=== PATIENT | female | born 1945 | race Caucasian/White ===

== ENCOUNTER → 2022-11-16 14:17 | Outpatient (BNVA) | payer MEDICARE, SELFPAY | PROVIDERS: PCP Neuromusculoskeletal Medicine & OMM; Referring Provider Neuromusculoskeletal Medicine & OMM; Visit Provider Psychiatry & Neurology Neurology | DX: R26.9 Unspecified abnormalities of gait and mobility (principal) | CPT/HCPCS: 99204 ==

== ENCOUNTER → 2023-02-21 14:54 | Outpatient (BNVA) | payer MEDICARE, SELFPAY | PROVIDERS: PCP Neuromusculoskeletal Medicine & OMM; Referring Provider Neuromusculoskeletal Medicine & OMM; Visit Provider Psychiatry & Neurology Neurology | DX: R26.89 Other abnormalities of gait and mobility (principal); I10 Essential (primary) hypertension | CPT/HCPCS: 99214 ==

== ENCOUNTER 2025-01-12 19:49 | Observation (INO) | payer MEDICARE, SELFPAY ==
[2025-01-12] VITALS (36 sets, daily range): BP systolic 126–171; BP diastolic 50–107; PULSE 36–99; RESP 12–35; TEMP 36.5; O2SAT 93–99
--- NOTE | 2025-01-12 19:45 | RT.EKG_ITS ---
APPROVED REPORT Exam: Resting ECG Reason for Exam: afib Patient Location: E HR:77 bpm ECG Measurements Heart Rate 77 AXIS IN 152 P 59 QRSd 85 QRS 57 QT 402 T 67 QTc 456 Conclusion Sinus rhythm, rate 77 No interval abnormalities No STEMI Movement artifact No priors available for comparison
--- NOTE | 2025-01-12 20:15 | DI.RAD_ITS ---
Exam(s) XR CHEST 2V PA LATERAL EXAM: XR CHEST 2V PA LATERAL CLINICAL HISTORY: Chest pain TECHNIQUE: 2D digital imaging was performed of the chest. Images were obtained. PA and lateral v iews were obtained. COMPARISON: No exams were available for comparison FINDINGS: MEDIASTINUM: Normal. HEART: Normal. PULMONARY VASCULATURE: Normal. LUNGS: Clear. PLEURAL SPACE: No pleural effusion or pneumothorax. BONE:Within normal limits for the patient's age. There is an old compression fracture deformity of T 12. OTHER FINDINGS:Normal. IMPRESSION: 1. No acute pulmonary findings. 2. The preliminary [facility] report was reviewed. DATA REPOSITORY: RADIATION DOSE DELIVERED:
[2025-01-12 20:27] LABS: Abs Immature Grans 0.02 10^3/uL (0.0-0.06); Absolute Basophil Count 0.09 10^3/uL (0.0-0.2); Absolute Eosinophil Count 0.15 10^3/uL (0.0-0.7); Absolute Lymphocyte Count 2.33 10^3/uL (1.2-3.4); Absolute Monocyte Count 0.36 10^3/uL (0.1-0.8); Absolute Neutrophil Count 4.84 10^3/uL (1.2-6.7); Basophils % 1.2 %; Eosinophils % 1.9 %; HCT 42.2 % (36.0-46.0); HGB 13.4 g/dL (11.2-15.7); Immature Grans % 0.3 %; Lymphocytes % 29.9 %; MCH 28.2 pg (27.0-33.0); MCHC 31.8 % (32.0-36.0); MCV 89 fL (80-95); MPV 9.2 fL (8.0-11.0); Monocytes % 4.6 %; Neutrophils % 62.1 %; Platelet Count 337 10^3/uL (130-400); RBC 4.76 10^6/uL (3.93-5.22); RDW-SD 49.1 fL; WBC 7.79 10^3/uL (4.4-10.8)
[2025-01-12] MEDS: Aspirin 81 MG CHEW 324 MG CH (20:29)
[2025-01-12 20:52] LABS: ALT 16 U/L (14-59); AST 14 U/L (15-37); Albumin 3.9 g/dL (3.4-5.0); Alkaline Phosphatase 95 U/L (46-116); Anion Gap 8.7 mmol/L (3-11); BUN 15 mg/dL (7-18); Bilirubin, Total 0.3 mg/dL (0.2-1.0); CO2 28.3 mmol/L (21.0-32.0); CREATININE 1.3 mg/dL (0.55-1.02); Calcium 9.4 mg/dL (8.5-10.1); Chloride 101 mmol/L (98-107); Estimated GFR 41.57 (mL/min/1.73m2); Glucose 99 mg/dL (74-106); NT-proBNP 92 pg/mL (<300); Potassium 3.5 mmol/L (3.5-5.1); Sodium 138 mmol/L (136-145); Total Protein 8.3 g/dL (6.4-8.2); Troponin I 6 ng/L (<or=51)
--- NOTE | 2025-01-12 21:17 | ED.GENADUL_ITS ---
Discharge Plan Disposition Patient Disposition: Admit to [facility] Condition: Stable Discharge Details Chief Complaint: Chest Pain Clinical Impression: Chest pain with high risk for cardiac etiology, Gait abnormality Primary Care Provider: Irving Molina ED Provider: Soledad Weiss Home Meds and New Rx's Prescriptions: No Action pravastatin 40 mg tablet 40 mg PO DAILY clopidogrel 75 mg tablet 75 mg PO DAILY Eliquis 5 mg tablet 5 mg PO BID levothyroxine 112 mcg capsule 112 mcg PO DAILY lisinopril 20 mg tablet 20 mg PO DAILY metoprolol succinate 100 mg tablet extended release 24 hr 150 mg PO DAILY HPI General Mode of arrival: ambulatory . Date/Time Provider Initiated Documentation: 01/12/25 20:03 . Limitations to Documentation: no limitations . Information obtained by: patient, family and old records reviewed . HPI Narrative: This is an 79-year-old female patient with a past medical history significant for paroxysmal atrial fibrillation on Eliquis, history of hypothyroidism, stroke, hyperlipidemia, and hypertension, who is presenting for evaluation of chest discomfort. The patient reports that she was working around her home today, and frequently had to stop because she had a discomfort or pressure in her chest. She reports that she was not having pain, states that she did not have shortness of breath, but felt like her heart was fluttering and pounding out of her chest. The patient reports that she was recently told by her outpatient provider to increase one of her medications to 1-1/2 pills, she cannot remember what medication that was, and her son thinks that she might have run out of it. The patient does not recall which medication she may have ran out of. She reports on arrival to the emergency department that her symptoms of chest pressure and fluttering in her chest have resolved, though she does feel shaky. She reports that prior to today she was feeling quite well, denies nausea or vomiting, changes in oral intake. Related Data Home Medications ?Medication ?Instructions ?Recorded ?Confirmed apixaban 5 mg tablet (Eliquis) 5 mg PO BID 02/02/23 01/12/25 levothyroxine 112 mcg capsule 112 mcg PO DAILY 02/02/23 01/12/25 lisinopril 20 mg tablet 20 mg PO DAILY 02/02/23 01/12/25 metoprolol succinate 100 mg 150 mg PO DAILY 02/02/23 01/12/25 tablet,extended release 24 hr pravastatin 40 mg tablet 40 mg PO DAILY 02/21/23 01/12/25 clopidogrel 75 mg tablet 75 mg PO DAILY 03/22/23 01/12/25 Allergies Allergy/AdvReac Type Severity Reaction Status Date / Time No Known Allergies Allergy Verified 01/12/25 20:34 General Stated Complaint: Chest Pain SUSAN: 3 Exam Narrative Exam Narrative: Gen: awake and alert, appears uncomfortable HEENT: PERRL, EOMs full and without nystagmus. External ears and nose normal, mucous membranes moist. Neck: Supple, full range of motion, no observable masses Lungs: No increased work of breathing, lung sounds clear and equal bilaterally without wheezes, rhonchi, or rales. CV: Heart with regular rate and rhythm, no murmurs auscultated. Strong and symmetrical radial pulses. Occasional unifocal PVCs appreciated on telemetry Abdomen: Soft, nondistended, non-tender to palpation. No rigidity, rebound tenderness, or guarding. MSK: No joint swelling, no redness. Full ROM without limitation, no external traumatic findings. No peripheral edema Skin: The patient has small nonblanching petechial like dots on her anterior chest, which her family member thinks have been there for some time. Otherwise, normal color, warm, and dry. Neuro: Cranial nerves II-XII intact and symmetrical bilaterally. 5/5 strength in all muscle groups x4 extremities. No sensory deficits. Psych: Appropriate for situation. Course Vital Signs Vital signs: Vital Signs Temperature 36.5 C 01/12/25 20:15 Pulse 75 01/12/25 20:15 Respiratory Rate 01/12/25 20:15 Blood Pressure 166/70 H 01/12/25 20:15 Pulse Oximetry 98 01/12/25 20:15 Temperature 36.5 C 01/12/25 20:15 Temperature Source Oral 01/12/25 20:15 Pulse 75 01/12/25 20:15 Respiratory Rate 01/12/25 20:15 Respiratory Effort Normal 01/12/25 20:24 Blood Pressure 166/70 H 01/12/25 20:15 Blood Pressure Position Supine 01/12/25 20:15 Pulse Oximetry 98 01/12/25 20:15 Oxygen Delivery Method Room Air 01/12/25 20:15 Oxygen Flow Rate 0 01/12/25 20:15 Lab/Test Results Lab/Test Results: Laboratory Tests Range/Units 01/12/25 20:11 WBC (4.4-10.8) 10^3/uL 7.79 RBC (3.93-5.22) 10^6/uL 4.76 Hgb (11.2-15.7) g/dL 13.4 Hct (36.0-46.0) % 42.2 MCV (80-95) fL 89 MCH (27.0-33.0) pg 28.2 MCHC (32.0-36.0) % 31.8 L RDW (11.7-14.6) % 15.0 H Plt Count (130-400) 10^3/uL 337 MPV (8.0-11.0) fL 9.2 Immature Gran % % 0.3 Neutrophils % % 62.1 Lymphocytes % % 29.9 Monocytes % % 4.6 Eosinophils % % 1.9 Basophils % % 1.2 Nucleated RBC % (0.0-0.3) % 0.0 Absolute Neutrophils (1.2-6.7) 10^3/uL 4.84 Absolute Lymphocytes (1.2-3.4) 10^3/uL 2.33 Absolute Monocytes (0.1-0.8) 10^3/uL 0.36 Absolute Eosinophils (0.0-0.7) 10^3/uL 0.15 Absolute Basophils (0.0-0.2) 10^3/uL 0.09 Sodium (136-145) mmol/L 138 Potassium (3.5-5.1) mmol/L 3.5 Chloride (98-107) mmol/L 101 Carbon Dioxide (21.0-32.0) mmol/L 28.3 Anion Gap (3-11) mmol/L 8.7 BUN (7-18) mg/dL 15 Creatinine (0.55-1.02) mg/dL 1.3 H Est GFR (CKD-EPI 2020) (mL/min/1.73m2) 41.57 Glucose (74-106) mg/dL 99 Calcium (8.5-10.1) mg/dL 9.4 Magnesium (1.8-2.4) mg/dL 2.0 Total Bilirubin (0.2-1.0) mg/dL 0.3 AST (15-37) U/L 14 L ALT (14-59) U/L 16 Alkaline Phosphatase (46-116) U/L 95 Troponin I (<or=51) ng/L 6 NT-Pro-B Natriuret Pep (<300) pg/mL 92 Total Protein (6.4-8.2) g/dL 8.3 H Albumin (3.4-5.0) g/dL 3.9 Medical Decision Making This is an 79-year-old female patient presenting for evaluation of chest discomfort and palpitations. My differential includes but is not limited to ACS including STEMI, NSTEMI, unstable angina, certainly considered arrhythmia, pericarditis/myocarditis, aortic pathology. Considered pulmonary abnormalities including pneumonia, bronchitis, pleural effusion, pulmonary edema, reactive airway disease, pneumothorax. The patient is without tachycardia, hypoxia, and is therapeutically anticoagulated, decreasing my concern for pulmonary embolism. No GI symptoms or vomiting to suggest Boerhaave's, esophagitis, peptic ulcer disease, pancreatitis. Considered musculoskeletal pathologies including costochondritis, chest wall pain. At this time the patient's symptoms are improved/resolved, an EKG was obtained that shows a normal sinus rhythm without evidence of ischemia, interval abnormality, though she does have occasional PVCs. She is otherwise hemodyn amically appropriate. We will obtain laboratory studies to include CBC, CMP, magnesium, troponin, BNP, and a chest x-ray. I ordered the patient 324 mg of aspirin. - I independently interpreted the laboratory studies, which show no significant leukocytosis, anemia, or thrombocytopenia. The chemistry panel is without evidence of electrolyte abnormality, new or worsening kidney dysfunction, or kiah er injury. The troponin was 6 and 6 again on the 1 hour recheck without interval change. BNP is low. The patient was road tested with a walker which is her baseline level of mobility due to her poor balance. With ambulation down the hallway she developed some shortness of breath, and her balance issues were ongoing, though not worse for her than typical per patient report. However, when she was sitting down her PVC burden was noted to be, and given her report of fatigue, shortness of breath I am concerned that this patient, who is heart score is elevated at 5, would benefit from inpatient observation and stress testing when available. The patient was amenable to staying after shared decision-making conversation, and I discussed this patient's case with the hospitalist, who is graciously accepted her for admission to their service. The patient remained hemodynamically appropriate while under my care and was transferred from our department without incident. Soledad Weiss MD Medical Records Medical records reviewed: Yes I reviewed the patient's medical records. Lab Data Lab results reviewed: Yes I reviewed the patient's lab results. Quality:SDOH Health Related Social Needs: No Data to Display PFSH All Active Problems (Updated 01/12/25 @ 22:51 by Soledad Weiss MD) Chest pain with high risk for cardiac etiology (Acute) Bilateral sensorineural hearing loss (Acute) Gait abnormality (Acute) Medical History Atrial fibrillation Balance problem Depression Dizziness Fibromyalgia Hyperlipidemia Hypertension Hypothyroidism Irregular heartbeat Paroxysmal atrial fibrillation Stroke Surgical History S/P lumbar discectomy Social History Smoking/Tobacco Use Status: Never Smoking risk assessment performed?: Yes Alcohol Intake: never Drug use: Never Household members: spouse Number of Children: 6
[2025-01-12 21:37] LABS: Troponin I 6 ng/L (<or=51)
--- NOTE | 2025-01-12 22:35 | DI.[facility]_ITS ---
PROCEDURE INFORMATION: Exam: XR Chest Exam date and time: 01/12/2025 8:52 PM Age: 79 years old Clinical indication: Other: Chest pain TECHNIQUE: Imaging protocol: Radiologic exam of the chest. Views: 2 views. COMPARISON: No relevant prior studies available. FINDINGS: Lungs: Unremarkable. No consolidation. Pleural spaces: Unremarkable. No pleural effusion. No pneumothorax. Heart/Mediastinum: Unremarkable. No cardiomegaly. Bones/joints: Unremarkable. IMPRESSION: No acute findings. Dictated and Authenticated by: Juan Antonio Mackey MD. Orderin St. Harjit Rowe MD
--- NOTE | 2025-01-12 23:35 | W.PM.HP.N ---
Date of service: 01/12/25 Time of Service: 23:35 Assessment and Plan Assessment and plan (1) Chest pain with high risk for cardiac etiology: Start date: 01/12/25 Status: Acute Assessment and plan: This is an 79-year-old lady with progressive exertional symptoms which are consistent with exertional angina and patient being asymptomatic at rest. She does have significant cardiovascular risk with paroxysmal atrial fibrillation and previous stroke. She is on appropriate medical regimen and will be admitted for observation on telemetry and trending troponins. She does have frequent PVCs with exertion as well. She will be scheduled to see cardiology with a stress test in the morning and consider updated echocardiogram. Cardiology will be consulted. Patient was given 1 dose of aspirin full dose but this would not be continuous cardiology thinks that this is necessary with patient already on Plavix. She is on a statin moderate dose therapy. This will be continued. She is a full code. (2) Paroxysmal atrial fibrillation: Assessment and plan: Continue outpatient medical regimen with apixaban and beta-marge. Cardiac monitoring. (3) Hypothyroidism: Assessment and plan: Continue outpatient supplement with TSH normal. (4) Hypertension: Assessment and plan: Continue outpatient medical regimen monitoring and adjusting as needed. (5) Hyperlipidemia: Assessment and plan: Continue outpatient statin therapy. History of Present Illness History of Present Illness Chief Complaint: Progressive exertional chest pressure with dyspnea and fatigue. 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 She has had progressive exertional chest pressure which she describes is not pain and some shortness of breath with palpitations while she has been working. She presents to the ED because of her increasing symptoms with exertion and EKG did not reveal atrial fibrillation or ischemic changes. She had negative troponins. She had a hallway walking test using her walker and did not have chest pain but return of exertional dyspnea with increased PVC frequency. She also felt fatigued after walking. Because of her history of atherosclerotic vessel disease and exertional symptoms, the patient was admitted for observation and trending troponins with cardiac monitoring and planned cardiac stress test with cardiology consultation in the morning. She was amenable to staying. Patient's blood pressure was slightly elevated upon presentation but this normalized with patient to be continued on her usual outpatient medical regimen. She is a full code. Review of Systems Narrative: 13 point review of systems otherwise unrevealing or stable. PFSH All Active Problems (Updated 01/12/25 @ 23:54 by Lobo White) Chest pain with high risk for cardiac etiology (Acute) Bilateral sensorineural hearing loss (Acute) Gait abnormality (Acute) Medical History Dizziness Balance problem Atrial fibrillation Stroke Paroxysmal atrial fibrillation Depression Fibromyalgia Hypothyroidism Hyperlipidemia Hypertension Irregular heartbeat Surgical History S/P lumbar discectomy Social History Smoking/Tobacco Use Status: Never Smoking risk assessment performed?: Yes Alcohol Intake: never Drug use: Never Household members: spouse Housing: house Number of Children: 6 Meds Allergies and Home Medications Allergies Allergy/AdvReac Type Severity Reaction Status Date / Time No Known Allergies Allergy Verified 01/12/25 20:34 Home Medications ?Medication ?Instructions ?Recorded ?Confirmed ?Type apixaban 5 mg tablet (Eliquis) 5 mg PO BID 02/02/23 01/12/25 History levothyroxine 112 mcg capsule 112 mcg PO DAILY 02/02/23 01/12/25 History lisinopril 20 mg tablet 20 mg PO DAILY 02/02/23 01/12/25 History metoprolol succinate 100 mg 150 mg PO DAILY 02/02/23 01/12/25 History tablet,extended release 24 hr pravastatin 40 mg tablet 40 mg PO DAILY 02/21/23 01/12/25 History clopidogrel 75 mg tablet 75 mg PO DAILY 03/22/23 01/12/25 History Exam Narrative Exam Narrative: General: Patient appears appropriate age, moderately obese, alert and oriented x 3 and in no acute distress. She does ambulate with walker. HEENT: Normocephalic, eyes with pupils equal and reactive to light symmetrically, extraocular movement intact and sclera anicteric. Moist oral mucosa with fair dentition. Neck: Supple without JVD. Back: Kyphotic without CVA tenderness. Lungs: Clear to auscultation and percussion with no focalizing rales or rhonchi. Normal vesicular breath sounds. Breast: Exam deferred. Heart: Regular rate and rhythm with no murmur or gallop appreciated. Abdomen: Obese contour, soft and nontender to palpation with no palpable hepatosplenomegaly. Bowel sounds positive all quadrants. Genitalia/rectal: Exam deferred Extremities: Without clubbing, cyanosis or pitting edema with patient having moderate nonpitting edema over ankles and feet. Good capillary refill. Skin: Normal color, warm and dry. Neuro: Cranial nerves II through XII grossly intact, no focalized motor deficits and no tremor. Psych: Normal affect and mood. No abnormal thought processes. Remote and recent memory intact. Results Labs 01/13/25 06:02 01/13/25 06:02 Labs: Laboratory Results - last 24 hr 01/12/25 01/12/25 20:11 21:09 WBC 7.79 RBC 4.76 Hgb 13.4 Hct 42.2 MCV 89 MCH 28.2 MCHC 31.8 L RDW 15.0 H Plt Count 337 MPV 9.2 Immature Gran % 0.3 Neutrophils % 62.1 Lymphocytes % 29.9 Monocytes % 4.6 Eosinophils % 1.9 Basophils % 1.2 Nucleated RBC % 0.0 Absolute Neutrophils 4.84 Absolute Lymphocytes 2.33 Absolute Monocytes 0.36 Absolute Eosinophils 0.15 Absolute Basophils 0.09 Sodium 138 Potassium 3.5 Chloride 101 Carbon Dioxide 28.3 Anion Gap 8.7 BUN 15 Creatinine 1.3 H Est GFR (CKD-EPI 2020) 41.57 Glucose 99 Calcium 9.4 Magnesium 2.0 Total Bilirubin 0.3 AST 14 L ALT 16 Alkaline Phosphatase 95 Troponin I 6 6 NT-Pro-B Natriuret Pep 92 Total Protein 8.3 H Albumin 3.9 Last Vital Signs Temp 36.5 C 01/12/25 20:15 Pulse 74 01/12/25 23:20 Resp 17 01/12/25 23:20 BP 148/50 H 01/12/25 23:16 Pulse Ox 95 01/12/25 23:20 Time Spent Time spent with Patient: >75 minutes Time was spent: preparing to see the patient(eg.review tests), obtaining and/or reviewing separately otained hiistory, ordering medications,tests, procedures, indepentently interpreting results, counseling the patient and care coordination
[2025-01-13] VITALS (22 sets, daily range): BP systolic 110–158; BP diastolic 38–77; PULSE 55–82; RESP 13–21; TEMP 35.3–36.9; O2SAT 93–97
--- NOTE | 2025-01-13 | DI.NM_ITS ---
APPROVED REPORT Exam: Pharmacologic Patient Location: In-Patient Room/Bed: Stress Nurse: Juliette Muñoz RN Ordering Provider:AUSTEN NICOLE, Contact Number: BMI: 33.44 Baseline Rhythm: Sinus Rhythm Indications: Chest tightness/RODRIGUEZ Medical History Medical History: Dizziness, stroke, balance problem, paroxysmal afib, depression, fibromyalgia, hypot hyroidism, HLD, HTN, irregular heartbeat Cardiac Medications: Eliquis, levothyroxine, lisinopril, metoprolol succinate, pravastatin, clopidogr el Allergies: NKA Cardiac Risk Factors: Family hx, HTN, HLD Previous Cardiac Procedures: None Pretest Chest Pain Characteristics: None Exercise History: Sedentary Physical Disabilities: back pain Lung Sounds: Clear to auscultation Heart Sounds: Regular Stress Test Details Test: Pharmacologic stress testing performed using 0.4 mg of regadenoson per 5 mL given IV over 10 s econds. Reason for pharmacologic stress test: physical limitation. Nuclear Acquisition: Rest Tc-99m/Stress Tc-99m 1 day Rest Isotope: Tc-99m Sestamibi. Dose: 10.0 Date: 01/13/2025 Injection Time: 1200 Stress Isotope: Tc-99m Sestamibi. Dose: 30.0 Date: 01/13/2025 Injection Time: 1410 HR Resting HR Supine: 62 bpm Max Heart Rate (APMHR): 140 bpm Target HR (85% APMHR): 119 bpm Max HR Achieved: 74 bpm % of APMHR: 53 Recovery HR: 69 bpm BP Resting BP Supine: 130/90 mmHg Max BP: 150/80 mmHg Recovery BP: 150/80 mmHg ECG Resting ECG: Sinus Rhythm Ectopy: Occasional PVC's Stress ECG: Sinus Rhythm ST Change: Nondiagnostic low heart rate Arrhythmia: Occasional PVC's Recovery ECG: Sinus Rhythm Recovery ST Change: Nondiagnostic low heart rate Clinical Angina Score: None Rate Pressure Product: [id number] Stress ECG Conclusion 1. Resting electrocardiogram was normal 2. Patient underwent testing using pharmacologic stress with regadenoson 3. The electrocardiographic portion of the test was nondiagnostic due to inadequate heart rate 4. See MPI report Stress Test Summary STAGE HR BP SpO2 Symptoms NOTES Supine 62 130/90 98% 1 min post Lexiscan injection 73 150/70 97% 3 min post Lexiscan injection 66 150/80 96% 6 min post Lexiscan injection 70 150/80 96% MPI Conclusion Myocardial perfusion is normal. There is no ischemia or evidence of prior infarction Ejection fraction is 59% with normal wall motion
[2025-01-13 00:34] LABS: Troponin I 5 ng/L (<or=51)
[2025-01-13 00:52] LABS: COVID-19 PCR Negative (Negative); Influenza A PCR Negative (Negative); Influenza B PCR Negative (Negative); RSV PCR Negative (Negative); Source Nasopharynx
--- NOTE | 2025-01-13 01:23 | W.PCEDHO ---
Registration Status: Primary Language: Preferred Language: ED Information & Data Chief Complaint Chest Pain 01/12/25 21:17 Triage Note 1 hour ago pt felt like her 01/12/25 20:15 heart waws racing, and it would stop and become normal and the would start racing racing again, and wouldn't stop Medical / Surgical History (Last Reviewed 01/12/25 @ 23:38 by Lobo White) Dizziness Balance problem Atrial fibrillation Stroke Paroxysmal atrial fibrillation Depression Fibromyalgia Hypothyroidism Hyperlipidemia Hypertension Irregular heartbeat (Last Reviewed 01/12/25 @ 23:38 by Lobo White) S/P lumbar discectomy Most Recent Vital Signs Temperature 36.5 C 01/12/25 20:15 Temperature Source Oral 01/12/25 20:15 Pulse 76 01/13/25 00:20 Pulse 81 01/13/25 00:20 Respiratory Rate 16 01/13/25 00:20 Respiratory Effort Normal 01/12/25 20:24 Blood Pressure 158/46 H 01/13/25 00:16 Blood Pressure Mean 84 01/13/25 00:16 Blood Pressure Position Supine 01/12/25 20:15 Pulse Oximetry 95 01/13/25 00:20 Oxygen Delivery Method Room Air 01/12/25 20:15 Oxygen Flow Rate 0 01/12/25 20:15 Allergies No Known Allergies Allergy (Verified 01/12/25 20:34) IV IV Catheter Type [Right Peripheral IV Antecubital] IV Catheter Gauge [Right 18 Antecubital] Diagnostics 01/13/25 01/12/25 01/12/25 Range/Units 00:05 21:09 20:11 WBC 7.79 (4.4-10.8) 10^3/uL RBC 4.76 (3.93-5.22) 10^6/uL Hgb 13.4 (11.2-15.7) g/dL Hct 42.2 (36.0-46.0) % MCV 89 (80-95) fL MCH 28.2 (27.0-33.0) pg MCHC 31.8 L (32.0-36.0) % RDW 15.0 H (11.7-14.6) % Plt Count 337 (130-400) 10^3/uL MPV 9.2 (8.0-11.0) fL Immature Gran % 0.3 % Neutrophils % 62.1 % Lymphocytes % 29.9 % Monocytes % 4.6 % Eosinophils % 1.9 % Basophils % 1.2 % Nucleated RBC % 0.0 (0.0-0.3) % Absolute Neutrophils 4.84 (1.2-6.7) 10^3/uL Absolute Lymphocytes 2.33 (1.2-3.4) 10^3/uL Absolute Monocytes 0.36 (0.1-0.8) 10^3/uL Absolute Eosinophils 0.15 (0.0-0.7) 10^3/uL Absolute Basophils 0.09 (0.0-0.2) 10^3/uL Sodium 138 (136-145) mmol/L Potassium 3.5 (3.5-5.1) mmol/L Chloride 101 (98-107) mmol/L Carbon Dioxide 28.3 (21.0-32.0) mmol/L Anion Gap 8.7 (3-11) mmol/L BUN 15 (7-18) mg/dL Creatinine 1.3 H (0.55-1.02) mg/dL Est GFR (CKD-EPI 2020) 41.57 (mL/min/1.73m2) Glucose 99 (74-106) mg/dL Calcium 9.4 (8.5-10.1) mg/dL Magnesium 2.0 (1.8-2.4) mg/dL Total Bilirubin 0.3 (0.2-1.0) mg/dL AST 14 L (15-37) U/L ALT 16 (14-59) U/L Alkaline Phosphatase 95 (46-116) U/L Troponin I 5 6 6 (<or=51) ng/L NT-Pro-B Natriuret Pep 92 (<300) pg/mL Total Protein 8.3 H (6.4-8.2) g/dL Albumin 3.9 (3.4-5.0) g/dL COVID-19 Source Nasopharynx SARS-CoV-2 (PCR) Negative (Negative) Influenza Type A (PCR) Negative (Negative) Influenza Type B (PCR) Negative (Negative) RSV (PCR) Negative (Negative) Intake and Output - 24 Hour Total 01/12/25 19:49 thru 01/12/25 20:15 Weight 99.4 kg Falls Risk Assessment History of Falls No History 01/12/25 20:23 Contributing Factors Unstable 01/12/25 20:23 Ambulatory Aids Uses ambulatory device 01/12/25 20:23 Tubes/Lines None 01/12/25 20:23 Gait Evaluation No gait disturbance 01/12/25 20:23 Cognition Cognitive impairment 01/12/25 20:23 Fall Total Score 33 01/12/25 20:23 Level of Risk Moderate Risk 01/12/25 20:23 Problems (Last Reviewed 01/12/25 @ 23:38 by Lobo White) Chest pain with high risk for cardiac etiology (Acute) v v v v v v v v v Sending and/or Receiving Nurses: Please use comment section below to note any information pertinent to the patient hand-off not included above. Information / Comments: Pt came in for chest pain/ fluttering, weakness. tried to go home from ED but did not tolerate walk test, becomes increasingly SOB, dizzy and PVCs increase. Pt has 18g in R AC. continent and using BSC with walker. Report received from: [employer], [place] A Driver
[2025-01-13] MEDS: Acetaminophen 325 MG TAB PO (03:22)
[2025-01-13] MEDS: Levothyroxine 112 MCG TAB PO (05:58)
[2025-01-13 06:37] LABS: HCT 38.3 % (36.0-46.0); HGB 12.3 g/dL (11.2-15.7); MCH 28.4 pg (27.0-33.0); MCHC 32.1 % (32.0-36.0); MCV 89 fL (80-95); MPV 9.6 fL (8.0-11.0); Platelet Count 253 10^3/uL (130-400); RBC 4.33 10^6/uL (3.93-5.22); RDW-SD 48.8 fL; WBC 5.49 10^3/uL (4.4-10.8)
[2025-01-13 07:07] LABS: ALT 15 U/L (14-59); AST 14 U/L (15-37); Albumin 3.4 g/dL (3.4-5.0); Alkaline Phosphatase 77 U/L (46-116); Anion Gap 6.4 mmol/L (3-11); BUN 18 mg/dL (7-18); Bilirubin, Total 0.3 mg/dL (0.2-1.0); CO2 27.6 mmol/L (21.0-32.0); CREATININE 1.2 mg/dL (0.55-1.02); Calcium 9.2 mg/dL (8.5-10.1); Chloride 105 mmol/L (98-107); Estimated GFR 45.76 (mL/min/1.73m2); Glucose 108 mg/dL (74-106); Magnesium 2.1 mg/dL (1.8-2.4); Sodium 139 mmol/L (136-145); TSH (W/Ref FT4) 0.73 uIU/mL (0.36-3.74); Total Protein 7.1 g/dL (6.4-8.2)
[2025-01-13] MEDS: Apixaban 5 MG TAB PO ×2 (08:47→20:05)
[2025-01-13] MEDS: Normal Saline Flush 10 ML SYR IVP ×2 (08:47→20:05)
[2025-01-13] MEDS: Clopidogrel 75 MG TAB PO (08:47)
[2025-01-13] MEDS: Lisinopril 20 MG TAB PO (08:47)
[2025-01-13] MEDS: Metoprolol CR 100 MG TABCR 150 MG PO (09:10)
--- NOTE | 2025-01-13 11:32 | PDOC.CMIN ---
Date of service: 01/13/25 Time of Service: 11:32 Care Management Initial Assmt Initial Assessment Reason for Hospitalization: Chest Pain, PAF Functional Status/Living Situation Patient Presentation: Darnell was lying in her bed when CM arrived. She is pleasant and willing to engage in conversation. She presented to the ED with chest discomfort. Darnell lives in a single family home in [place], with her and daughter. She reports that she has 2 walkers in her home and she keeps one upstairs and one downstairs; Darnell's bedroom is upstairs and she uses a chairlift to get there. Her son drives her and is her primary source of transportation. In September, Darnell was [facility]c from [facility] with [facility]OT; PT evaluation is pending, she reports that she would like them back if recommended. CM will continue to follow Town of Residence: [place] Resides with: Child and Spouse Significant Other/Family: Local Natural Supports: Her family is a great support system for her. 2 sons and daughter help her get her needs med. Shares her granddaughter is a pharmacist (Lelia at [facility]). 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 Medications Medication Management: Issues/Barriers with Other (Forgetting to fill meds/ stating she doesn't want to take certain medication because she doesn't know what it does. ) Physical Functioning/Mobility Assistive Device: 2 Walkers in home Advance Directives Advance Directives: Do you have an Advance Directive: Y 01/13/25 00:21 AD On File at [facility]: Y 01/13/25 00:21 Date Asked AD Date Reviewed 01/13/25 01/13/25 00:21 COLST On File at [facility] COLST Date Scanned Code Status Resuscitation Status Full Code Insurance Coverage/Financial Issues Insurance: Medicare Part A & B? Financial Issues: None identified Care Team Visit Care Team Role Provider Type Monie Lema APRN MD [facility] STAFF PHYSICIAN Irving Molina MD Primary Care Provider NON-[facility] STAFF PHYSICIAN Soledad Weiss MD Emergency Provider [facility] STAFF PHYSICIAN Lobo White Admit Provider NON-[facility] STAFF PHYSICIAN Attending Provider Discharge Potential Discharge Needs: PT Evaluation and PCP F/U Appt Anticipated Barriers to Discharge: None Identified Patient/Family Education Needs: Review discharge instructions, discuss Ask Me Three Transportation: Private vehicle (Son) Plan: Anticipate Tiffany will be discharged home once medically ready. She will follow up with her community providers and discharge plan of care as instructed. She will transport via private vehicle by her son. Social Determinants of Health Screening Social Determinants of health last assessed in clinic: 01/13/25 Will the Patient Participate in the Screening?: Yes Do you worry about having a steady place to live?: no Problems where you live: no known problems In the past 12 months, have you had to go without electric, gas, oil or water in your home?: no 1. Within the past 12 months, we worried whether our food would run out before we got money to buy more.: Never true 2. Within the past 12 months, the food we bought just didn't last and we didn't have money to get more.: Never true Has lack of transportation kept you from medical appointments or from doing things needed for daily living?: no Has anyone in your life made you feel unsafe or unsupported?: no How hard is it for you to pay for the very basics like food, housing, medical care, and heating? Would you say it is:: Not hard at all Do you want help finding or keeping work or a job?: I do not need or want help If for any reason you need help with day-to-day activities such as bathing, preparing meals, shopping, managing finances, etc., do you get the help you need?: I get all the help I need How often do you feel lonely or isolated from those around you?: Never Do you speak a language other than Croatian at home?: No Does the patient want assistance with any of the above?: No PFSH All Active Problems (Updated 01/12/25 @ 23:54 by Lobo White) Chest pain with high risk for cardiac etiology (Acute) Bilateral sensorineural hearing loss (Acute) Gait abnormality (Acute) Medical History Dizziness Balance problem Atrial fibrillation Stroke Paroxysmal atrial fibrillation Depression Fibromyalgia Hypothyroidism Hyperlipidemia Hypertension Irregular heartbeat Surgical History S/P lumbar discectomy Social History Smoking/Tobacco Use Status: Never Smoking risk assessment performed?: Yes Alcohol Intake: never Drug use: Never Household members: spouse Housing: house Number of Children: 6 Anticipated HH Services Anticipated HH Services at [facility]charge [facility].
[2025-01-13] MEDS: Regadenoson 0.4 MG/5 ML SYR IVP (14:17)
--- NOTE | 2025-01-13 16:52 | PGE_ITS ---
Date of Service Date of service: 01/13/25 Time of Service: 16:52 Assessment and Plan Assessment and plan (1) Chest pain with high risk for cardiac etiology: Start date: 01/13/25 Start time: 17:08 Status: Acute Assessment and plan: Resolved as patient remains in a SR s/p conversion from A-Fib w RVR trop negative will continue to monitor on tele MPI completed no reading available at this time (2) Gait abnormality: Status: Acute Assessment and plan: PT consult (3) Paroxysmal atrial fibrillation: Assessment and plan: On home metoprolol SR on tele and no further RVR (4) Hypothyroidism: Assessment and plan: On home Levothryroxine (5) Hypertension: Assessment and plan: On home lisinopril (6) Stroke: Assessment and plan: On home plavix and eliquis for A-fib (7) Hyperlipidemia: Assessment and plan: On home statin (8) Back pain: Status: Acute Assessment and plan: S/P MRI 06/13 - Flare of chronic back pain starting 3 month ago s/p fall Trial of ultram not done as the Rx is not effective for the patient at home Oxycondone not an option as it was reported given by her son's meds for her to trial w/o success APAP scheduled hydromorphone 1 mg IVP X1 Discused with Dr. Mccall Subjective Subjective Patient reports: still having pain, tolerating liquids well, tolerating a regular diet, voiding w/o difficulty and other (new onset of back pain 06/13 in the setting prior Hx of fall and compression injury 3 months ago- relates it to position during MRI- cannot take ultram or oxycodone -ok for other pain meds trial); denies diarrhea, nausea, vomiting, shortness of breath or fever Exam Narrative Exam Narrative: Constitutional 79 yo female looking of the stated age, w/o acute distress, alert and oriented X4, non-focal, moves all 4 extremities, non-icteric sclera Neck: Normal ROM, No JVD Resp: Unlabored breathing, clear lung bilaterally Cardio:Telemetry SR HR 60-70's regular rhythm, S1, S2, no murmur GI: Abdomen is not distended, soft and non tender, bowel sounds are present : Negative Costovertebral angle tenderness Back/spine/Pelvis: No back tenderness earlier but flare of chronic right sided pain to her back Extremities: strength 5/5 to bilateral lower and upper extremities Psych: RASS 0, congruent mood and normal affect. Objective Last Vital Signs Temp 35.3 C L 01/13/25 15:47 Pulse 63 01/13/25 15:47 Resp 20 01/13/25 15:47 BP 122/77 01/13/25 15:47 Pulse Ox 97 01/13/25 15:47 Laboratory Results - last 24 hr 01/12/25 01/12/25 01/13/25 20:11 21:09 00:05 WBC 7.79 RBC 4.76 Hgb 13.4 Hct 42.2 MCV 89 MCH 28.2 MCHC 31.8 L RDW 15.0 H Plt Count 337 MPV 9.2 Immature Gran % 0.3 Neutrophils % 62.1 Lymphocytes % 29.9 Monocytes % 4.6 Eosinophils % 1.9 Basophils % 1.2 Nucleated RBC % 0.0 Absolute Neutrophils 4.84 Absolute Lymphocytes 2.33 Absolute Monocytes 0.36 Absolute Eosinophils 0.15 Absolute Basophils 0.09 Sodium 138 Potassium 3.5 Chloride 101 Carbon Dioxide 28.3 Anion Gap 8.7 BUN 15 Creatinine 1.3 H Est GFR (CKD-EPI 2020) 41.57 Glucose 99 Calcium 9.4 Magnesium 2.0 Total Bilirubin 0.3 AST 14 L ALT 16 Alkaline Phosphatase 95 Troponin I 6 6 5 NT-Pro-B Natriuret Pep 92 Total Protein 8.3 H Albumin 3.9 TSH COVID-19 Source Nasopharynx SARS-CoV-2 (PCR) Negative Influenza Type A (PCR) Negative Influenza Type B (PCR) Negative RSV (PCR) Negative 01/13/25 01/13/25 06:02 06:02 WBC 5.49 RBC 4.33 Hgb 12.3 Hct 38.3 MCV 89 MCH 28.4 MCHC 32.1 RDW 15.0 H Plt Count 253 MPV 9.6 Immature Gran % Neutrophils % Lymphocytes % Monocytes % Eosinophils % Basophils % Nucleated RBC % Absolute Neutrophils Absolute Lymphocytes Absolute Monocytes Absolute Eosinophils Absolute Basophils Sodium 139 Potassium 4.0 Chloride 105 Carbon Dioxide 27.6 Anion Gap 6.4 BUN 18 Creatinine 1.2 H Est GFR (CKD-EPI 2020) 45.76 Glucose 108 H Calcium 9.2 Magnesium 2.1 2.0 Total Bilirubin 0.3 AST 14 L ALT 15 Alkaline Phosphatase 77 Troponin I NT-Pro-B Natriuret Pep Total Protein 7.1 Albumin 3.4 TSH 0.73 COVID-19 Source SARS-CoV-2 (PCR) Influenza Type A (PCR) Influenza Type B (PCR) RSV (PCR) Time Spent with Patient Time Spent with Patient: >50 minutes Time was spent: preparing to see the patient(eg.review tests), obtaining and/or reviewing separately otained hiistory, ordering medications,tests, procedures, referring, communicating with other health long term care pharmacist, indepentently in terpreting results, counseling the patient and care coordination
[2025-01-13] MEDS: HYDROmorphone 2 MG/ML SYR 1 MG IVP (17:20)
[2025-01-13] MEDS: Acetaminophen 500 MG TAB 1000 MG PO (17:30)
[2025-01-13] MEDS: Pravastatin 40 MG TAB PO (20:04)
[2025-01-14 02:35] VITALS: BP 117/56; PULSE 58; RESP 18; TEMP 36; O2SAT 97
[2025-01-14] MEDS: Acetaminophen 500 MG TAB 1000 MG PO ×2 (04:14→11:01)
[2025-01-14] MEDS: Levothyroxine 112 MCG TAB PO (04:15)
[2025-01-14 06:33] LABS: HCT 37.5 % (36.0-46.0); HGB 11.8 g/dL (11.2-15.7); MCH 27.4 pg (27.0-33.0); MCHC 31.5 % (32.0-36.0); MCV 87 fL (80-95); MPV 9.3 fL (8.0-11.0); Platelet Count 264 10^3/uL (130-400); RBC 4.31 10^6/uL (3.93-5.22); RDW 14.8 % (11.7-14.6); RDW-SD 47.5 fL; WBC 5.12 10^3/uL (4.4-10.8)
[2025-01-14 06:55] LABS: ALT 15 U/L (14-59); AST 15 U/L (15-37); Albumin 3.3 g/dL (3.4-5.0); Alkaline Phosphatase 64 U/L (46-116); Anion Gap 8.7 mmol/L (3-11); BUN 18 mg/dL (7-18); Bilirubin, Total 0.4 mg/dL (0.2-1.0); CO2 26.3 mmol/L (21.0-32.0); CREATININE 1.1 mg/dL (0.55-1.02); Calcium 8.8 mg/dL (8.5-10.1); Chloride 104 mmol/L (98-107); Glucose 89 mg/dL (74-106); Potassium 3.8 mmol/L (3.5-5.1); Sodium 139 mmol/L (136-145)
[2025-01-14] MEDS: Metoprolol CR 100 MG TABCR 150 MG PO (08:08)
[2025-01-14] MEDS: Clopidogrel 75 MG TAB PO (08:08)
[2025-01-14] MEDS: Lisinopril 20 MG TAB PO (08:09)
[2025-01-14] MEDS: Apixaban 5 MG TAB PO (08:09)
[2025-01-14] MEDS: Normal Saline Flush 10 ML SYR IVP (08:12)
--- NOTE | 2025-01-14 10:24 | PT.INIE ---
PT Notes Visit Reasons: Chest Pain, PAF Physical Therapy Inpatient Initial Evaluation Date: 01/14/2025 Referring Doctor: Monie Lema NP PT Orders: PT CONSULT: Safety consult for discharge Precautions: Fall risk Patient Profile/Admitting Diagnosis: Patient is 79-year-old female presented to the ED with chest pain consistent with exertional angina EKG noted PVCs with exertion negative troponins patient was admitted for medical management and PT consult placed. PMHX: Chest pain with high risk for cardiac etiology (Acute) Bilateral sensorineural hearing loss (Acute) Gait abnormality (Acute) Medical History Dizziness Balance problem Atrial fibrillation Stroke Paroxysmal atrial fibrillation Depression Fibromyalgia Hypothyroidism Hyperlipidemia Hypertension Irregular heartbeat Surgical History S/P lumbar discectomy Social History/Home Situation: Resides at home with and son providing transportation, patient has ramp to enter home. She utilizes a walker for all ambulation. Assist with ADLs, family assist with meals and medication management Equipment Owned/DME: 2 FWW?1 on first floor 1 on second floor, chairlift to second-floor Subjective: Patient reports she is going home today and feels much better. Patient reports she has a diagnosis of functional neuro degeneration which causes her to have instability/tremor while she is walking and fatigue quickly Objective: [] General Observation: Patient presented seated in chair with son and present Mental Status: [] Alert and oriented x 4, cooperative, agreeable to participate in eval, able to follow commands Pain: Denies Vitals: BP 127/68, HR 62, 96% ROM: [] BUE: WFL BLE: WFL Strength: [] BUE: Grossly 3+/5 BLE: Hips 3+/5, knees 3+/5 ankles 3/5 Sensation: Intact Bed Mobility/Transfers: [] Supine to sit independent Sit to stand SBA Stand to sit SBA Bed to chair SBA with FWW Gait: Ambulated 80 feet x 2 including turns on level surfaces with CGA and FWW with wheelchair follow for safety. Patient demonstrates reciprocal pattern of movement. Balance: [] Static Sitting: Normal Dynamic Sitting: Good Static Standing: Good Dynamic Standing: Fair plus Special Tests: [] Mobility Limitations Standardized Measure [] [facility] 6 clicks Basic Mobility Inpatient Short Form: [] Raw Score: [] CMS Score: [] Informed Consent/Education: Patient instructed in purpose of PT consult. Assessment: Patient is 79-year-old female demonstrating impaired functional activity tolerance. Patient had no episodes of tremor or instability during ambulation or transfers during evaluation. Nursing staff noted episodes of lower extremity instability/buckling requiring the use of steady lift for transfers/ Patient presents with clinical signs and symptoms consistent with current/admitting diagnoses that have resulted to mobility limitations, gait instability, generalized weakness, and impairment of motor control as demonstrated by the following impairment level findings: 1. Decreased strength/motor control to BLE major muscle groups 2. Impaired standing balance without upper extremity support 3. Impaired functional activity tolerance Impairments are contributing to the following functional limitations: 1. Inability to safely ambulate without assistive device 2. Increase completion time for mobility ADL performance 3. Increased fall risk Patient is assessed as a moderate complexity based on the following: History: 79-year-old female with impairment level findings, functional limitations, and past medical history as indicated above Examination: Demonstrable impairment in strength, balance, and mobility level with underlying impairments and functional limitations as documented above Presentation: Evolving Decision Making: Moderate Goals: N/A. Patient to be discharged to home Plan of Care/Treatment Plan: N/A. PT evaluation and 1-2 treatment session only for functional mobility training using recommended AD and for HEP instruction. DISCHARGE RECOMMENDATIONS: Home with PT TREATMENT CODE/TIME: [id number]/ [id number] Thank you for the opportunity to participate in the care of this patient. [facility]
--- NOTE | 2025-01-14 10:42 | PDOC.CMDIS ---
Date of service: 01/14/25 Time of Service: 10:42 LACE Index Scoring Tool Questions: Length of Stay (in days): 2 Was the patient admitted via the E.D.?: Yes E.D. Visits: 1 Answers: Total Score: 6 Risk of Readmission: Low Risk Care Management Discharge Plan Reason for Hospitalization: Chest Pain, PAF Discharge Plan: Tiffany will be discharged home. She will follow up with her community providers and discharge plan of care as instructed. She will transport via private vehicle by her son. Patient/Family Education Needs: Review of discharge instructions, activity, limitations, and plan of care. Discuss Ask Me Three. Services Needed at Discharge: Home Health Care Services (RN/PT/N[facility] SIFTER) SDOH Health Related Social Needs: No Data to Display
[2025-01-14 11:34] VITALS: BP 115/58; PULSE 60; RESP 18; TEMP 36.5; O2SAT 97
--- NOTE | 2025-01-14 12:27 | W.PM.DS.N ---
Date of service: 01/14/25 Time of Service: 12:27 DS: Diagnosis Discharge Diagnosis (1) Chest pain with high risk for cardiac etiology: Status: Acute (2) Gait abnormality: Status: Acute (3) Paroxysmal atrial fibrillation: (4) Hypothyroidism: (5) Hypertension: (6) Stroke: (7) Hyperlipidemia: (8) Back pain: Status: Acute Discharge Plan Disposition Patient Disposition: Home W/Home Health Services Condition: Improving Discharge Details Reason For Visit: Chest Pain, PAF Admit Date/Time: 01/12/25 23:53 Admit Provider: Lobo White Attending Provider: Lobo White Primary Care Provider: Irving Molina Hospital Course Hospital Course: This 79-year-old female patient with a past medical history significant for paroxysmal atrial fibrillation on Eliquis, history of hypothyroidism, stroke, hyperlipidemia, and hypertension, presented to the Ed on 01/12/25 for evaluation of chest discomfort and fluttering/ pounding sensation in her chest w/o true pain or shortness of breath . The patient reports that she was working around her home today, and frequently had to stop because she had a discomfort or pressure in her chest. The patient reported that she was recently told by her outpatient provider to increase one of her medications to 1-1/2 pills, she could not recall what medication that was, and her son reported that she might have run out of it. Work-up in the ED was positive for sinus rhythm with frequent PVC's w/o coronary occlusion, troponins were negative; blood work was unremarkable except for Cr at 1.3 w/o available baseline. The patient was treated with metoprolol and admitted to the medical surgical floor for MPI, trending of cardiac markers and cardiac arrhymia control by re-establishing her beta-marge dosing. MPI was normal w/o LV dysfunction. The patient remained in a sinus rhythm with less PVC's , chest pressure resolved. The patient will be discharged home with home health PT and nursing for medicine compliance , on metoprolol succinate, Eliquis, plavix, pravastatin and dose adjusted gabapentin for back pain flare with follow-up with PCP within 7 days of discharge. The patient understood that Eliquis and Levothryoxine are also mandatory. Recommendations for PCP follow-up Consider repeat echocardiogram Furosemide and Plavix resumption Discuss Sertraline Cardiology referral Discussed with Dr. Mccall Home Meds and New Rx's Prescriptions: New gabapentin 300 mg capsule 300 mg PO TID Qty: 90 0RF metoprolol succinate 50 mg tablet extended release 24 hr 150 mg PO DAILY Qty: 90 0RF pravastatin 40 mg tablet 40 mg PO DAILY Qty: 30 0RF clopidogrel [Plavix] 75 mg tablet 75 mg PO DAILY Qty: 30 0RF Continued Eliquis 5 mg tablet 5 mg PO BID levothyroxine 112 mcg capsule 112 mcg PO DAILY lisinopril 20 mg tablet 20 mg PO DAILY sertraline 50 mg tablet 50 mg PO DAILY Patient Comments: TAKE ONE TABLET BY MOUTH EVERY DAY Held clopidogrel 75 mg tablet 75 mg PO DAILY Hold Instructions: Resume on 01/22/25. Resume as per PCP f/u gabapentin 600 mg tablet 600 mg PO TID Hold Instructions: Resume on 01/28/25. Dose adjusted to renal function, f/u with PCP Patient Comments: TAKE ONE TABLET BY MOUTH THREE TIMES A DAY Discontinued pravastatin 40 mg tablet 40 mg PO DAILY metoprolol succinate 100 mg tablet extended release 24 hr 150 mg PO DAILY Discharge Instructions Referrals: Irving Molina MD [Primary Care Provider] - (Follow-up with PCP within 7 days of discharge) Activity:: Activity as Tolerated Equipment/Supplies:: Walker Diet:: heart healthy DS: Summary Time Spent with Patient providing and/or coordinating discharge services: Greater than 30 minutes Status at Discharge Functional status at discharge: independent ambulation Overall status at discharge: patient is progressing back to baseline Mental Status: mental status grossly normal Speech and Movement: speech and movement normal Mood: congruent mood Affect: normal affect Quality:SDOH Health Related Social Needs: No Data to Display Exam Narrative Exam Narrative: Constitutional 79 yo female looking of the stated age, w/o acute distress, alert and oriented X4, non-focal, moves all 4 extremities, non-icteric sclera Neck:No JVD Resp: Unlabored breathing, clear lung bilaterally Cardio:Telemetry SR HR 60-70's regular rhythm no PVC's, S1, S2, no murmur GI: Abdomen is not distended, soft and non tender, bowel sounds are present Back/spine/Pelvis: Improved back tenderness flare Psych: RASS 0, congruent mood and normal affect. Psych Mental Status: mental status grossly normal Speech and Movement: speech and movement normal Mood: congruent mood Affect: normal affect DS: Data Vitals/I&O Vitals and I&O: Vital Signs Temperature 36.5 C 01/14/25 11:34 Temperature Source Temporal Artery Scan 01/14/25 11:34 Pulse 60 01/14/25 11:34 Pulse Rhythm Irregular 01/13/25 01:49 Pulse 79 01/13/25 01:20 Respiratory Rate 18 01/14/25 11:34 Respiratory Effort Normal, Non-Labored 01/13/25 01:49 Respiratory Depth Normal 01/13/25 01:49 Respiratory Pattern Normal 01/13/25 01:49 Blood Pressure 115/58 L 01/14/25 11:34 Blood Pressure Mean 77 01/14/25 11:34 Blood Pressure Position Supine 01/12/25 20:15 Pulse Oximetry 97 01/14/25 11:34 Oxygen Delivery Method Room Air 01/14/25 11:34 Oxygen Flow Rate 0 01/14/25 11:34 Pain Level 0 01/14/25 11:01 Comment Notifying RN 01/14/25 11:34 Intake & Output 01/13/25 01/14/25 01/14/25 23:59 11:59 23:59 Intake Total 70 / 80 50 / 50 Output Total 275 / 725 50 / 50 Balance -205 / -645 0 / 0 Intake: IV 20 / 30 10 / 10 Oral 50 / 50 40 / 40 Output: Urine 275 / 725 50 / 50 Other: Urine Color Straw Straw Urine Appearance Clear Urine Odor Foul Foul Comment Pt voided and missed the hat. Data Completed and Pending Labs on day of discharge: Labs from last 24 hours 01/14/25 06:01: WBC 5.12, RBC 4.31, Hgb 11.8, Hct 37.5, MCV 87, MCH 27.4, MCHC 31.5 L, RDW 14.8 H, Plt Count 264, MPV 9.3, Sodium 139, Potassium 3.8, Chloride 104, Carbon Dioxide 26.3, Anion Gap 8.7, BUN 18, Creatinine 1.1 H, Est GFR (CKD-EPI 2020) 50.80, Glucose 89, Calcium 8.8, Magnesium 2.0, Total Bilirubin 0.4, AST 15, ALT 15, Alkaline Phosphatase 64, Total Protein 7.0, Albumin 3.3 L, Triglycerides Pending, Total Cholesterol Pending, LDL Cholesterol, Calc Pending, HDL Cholesterol Pending PFSH All Active Problems (Updated 01/13/25 @ 17:03 by Monie Lema APRN) Back pain (Acute) Chest pain with high risk for cardiac etiology (Acute) Bilateral sensorineural hearing loss (Acute) Gait abnormality (Acute) Medical History Dizziness Balance problem Atrial fibrillation Stroke Paroxysmal atrial fibrillation Depression Fibromyalgia Hypothyroidism Hyperlipidemia Hypertension Irregular heartbeat Surgical History S/P lumbar discectomy Social History Smoking/Tobacco Use Status: Never Smoking risk assessment performed?: Yes Alcohol Intake: never Drug use: Never Household members: spouse Housing: house Number of Children: 6 Time Spent with Patient Time Spent with Patient: 70-84 minutes4 Time was spent: preparing to see the patient(eg.review tests), obtaining and/or reviewing separately otained hiistory, ordering medications,tests, procedures, referring, communicating with other health special needs caregiver, indepentently interpreting results, counseling the patient and care coordination
--- NOTE | 2025-01-14 13:04 | PDOC.HHF2F_ITS ---
Home Health Referral Home Health Orders Clinical synopsis of why skilled professionals are needed: This 79-year-old female patient with a past medical history significant for paroxysmal atrial fibrillation on Eliquis, history of hypothyroidism, stroke, hyperlipidemia, and hypertension, presented to the Ed on 01/12/25 for evaluation of chest discomfort and fluttering/ pounding sensation in her chest w/o true pain or shortness of breath . The patient reports that she was working around her home today, and frequently had to stop because she had a discomfort or pressure in her chest. The patient reported that she was recently told by her outpatient provider to increase one of her medications to 1-1/2 pills, she could not recall what medication that was, and her son reported that she might have run out of it. Work-up in the ED was positive for sinus rhythm with frequent PVC's w/o coronary occlusion, troponins were negative; blood work was unremarkable except for Cr at 1.3 w/o available baseline. The patient was treated with metoprolol and admitted to the medical surgical floor for MPI, trending of cardiac markers and cardiac arrhymia control by re-establishing her beta-marge dosing. MPI was normal w/o LV dysfunction. The patient remained in a sinus rhythm with less PVC's , chest pressure resolved. The patient will be discharged home with home health PT and nursing for medicine compliance , on metoprolol succinate, Eliquis, plavix, pravastatin and dose adjusted gabapentin for back pain flare with follow-up with PCP within 7 days of discharge. The patient understood that Eliquis and Levothryoxine are also mandatory. Recommendations for PCP follow-up Consider repeat echocardiogram Furosemide and Plavix resumption Discuss Sertraline Cardiology referral Discussed with Dr. Mccall Registered Nurse: Check all that apply Instruct on new or changed medication(s)/assess compliance: Ordered Assess for exacerbation of medical condition, instruct patient/caregivers on signs and symptoms to report for early detection: Ordered Physical Therapist: Check all that apply Increase strength & endurance for safe mobility at home: Ordered To design/establish home maintenance program: Ordered Fall reduction therapy program for patient with history of frequent falls: Ordered Home safety evaluation and teaching/gait training including stair management (if applicable): Ordered Traffic Or System Dispatcher: Assist with community resources: Ordered Assist with custodial care planning: Ordered Encounter Date and Reason: I certify that a FTF encounter for this patient was performed on January 14, 2025 and that such encounter was related to the primary reason the patient requires home health services. The encounter was conducted in the following manner: * By me as the certifying physician, [employer] CREWMEMBER, PA or * By an inpatient physician, M[employer] R[employer] CREWMEMBER or PA during an inpatient stay who communicated findings to me, Certification And Authentication I certify that I composed the above information based on my clinical judgment relating to this patient's medical condition and, if applicable, clinical findings communicated to me by the NPP or inpatient physician who performed the FTF encounter. Name of Provider that will be monitoring home health services: Irving Molina
[2025-01-14 20:12] LABS: Calculated LDL 190 mg/dL (<100); Cholesterol 277 mg/dL (<200); HDL Cholesterol 65 mg/dL (>or=50); Triglyceride 112 mg/dL (<150)
== END 2025-01-14 13:32 | disposition home health service (06) ==
LOC: ER 01-13 01:30 → MS 01-13 01:32
PROVIDERS: Admitting Provider Family Medicine; Emergency Provider Emergency Medicine; PCP Family Medicine; Responsible Provider Nurse Practitioner Acute Care; Visit Provider Family Medicine
DX: I48.0 Paroxysmal atrial fibrillation (principal); R07.89 Other chest pain; E03.9 Hypothyroidism, unspecified; I10 Essential (primary) hypertension; E78.5 Hyperlipidemia, unspecified; R26.9 Unspecified abnormalities of gait and mobility; Z86.73 Personal history of transient ischemic attack (TIA), and cerebral infarction without residual deficits; I49.3 Ventricular premature depolarization; H90.3 Sensorineural hearing loss, bilateral; F32.A Depression, unspecified; R42 Dizziness and giddiness
CPT/HCPCS: 00123; 36415; 78452; 80053; 80061; 85027; 87637; 93005; 93016; 93018; 96374; 97162; 97530; 99285; 71046; 83735; 83880; 84443; 84484; 85025; 93010; 93017; 99223; 99233; 99239; G0378; J1171; J2785

== ENCOUNTER 2025-01-22 18:54 | Emergency (ER) | payer MEDICARE, SELFPAY ==
[2025-01-22] VITALS (15 sets, daily range): BP systolic 143–157; BP diastolic 82–121; PULSE 59–80; RESP 10–26; TEMP 36.6; O2SAT 94–99
--- NOTE | 2025-01-22 18:45 | RT.EKG_ITS ---
APPROVED REPORT Exam: Resting ECG Reason for Exam: chest pain Patient Location: E HR:81 bpm ECG Measurements Heart Rate 81 AXIS NJ 158 P -29 QRSd 84 QRS 1 QT 390 T 40 QTc 416 Conclusion Sinus rhythm...normal P axis, V-rate 60- 99 Multiple ventricular premature complexes...V complexes w/ short R-R intervls Sinus rhythm with PVCs. WHen compared to prior 01/12/25 PVCs are new. WD
[2025-01-22 19:28] LABS: Abs Immature Grans 0.03 10^3/uL (0.0-0.06); Absolute Basophil Count 0.04 10^3/uL (0.0-0.2); Absolute Eosinophil Count 0.16 10^3/uL (0.0-0.7); Absolute Lymphocyte Count 1.99 10^3/uL (1.2-3.4); Absolute Monocyte Count 0.41 10^3/uL (0.1-0.8); Absolute Neutrophil Count 3.76 10^3/uL (1.2-6.7); Basophils % 0.6 %; Eosinophils % 2.5 %; HCT 39.9 % (36.0-46.0); HGB 12.8 g/dL (11.2-15.7); Immature Grans % 0.5 %; Lymphocytes % 31.1 %; MCH 28.1 pg (27.0-33.0); MCHC 32.1 % (32.0-36.0); MCV 88 fL (80-95); MPV 9.2 fL (8.0-11.0); Monocytes % 6.4 %; Neutrophils % 58.9 %; Platelet Count 396 10^3/uL (130-400); RBC 4.56 10^6/uL (3.93-5.22); RDW 14.1 % (11.7-14.6); RDW-SD 45.3 fL; WBC 6.39 10^3/uL (4.4-10.8)
--- NOTE | 2025-01-22 19:30 | W.ED.GENAD ---
Discharge Plan Disposition Patient Disposition: Home Condition: Improving Discharge Details Chief Complaint: Chest Pain Clinical Impression: Chest pain, Fatigue Primary Care Provider: Irving Molina ED Provider: Valarie Montague Home Meds and New Rx's Prescriptions: No Action clopidogrel 75 mg tablet 75 mg PO DAILY Eliquis 5 mg tablet 5 mg PO BID levothyroxine 112 mcg capsule 112 mcg PO DAILY lisinopril 20 mg tablet 20 mg PO DAILY gabapentin 600 mg tablet 600 mg PO TID Patient Comments: TAKE ONE TABLET BY MOUTH THREE TIMES A DAY sertraline 50 mg tablet 50 mg PO DAILY Patient Comments: TAKE ONE TABLET BY MOUTH EVERY DAY gabapentin 300 mg capsule 300 mg PO TID Qty: 90 0RF metoprolol succinate 50 mg tablet extended release 24 hr 150 mg PO DAILY Qty: 90 0RF pravastatin 40 mg tablet 40 mg PO DAILY Qty: 30 0RF clopidogrel [Plavix] 75 mg tablet 75 mg PO DAILY Qty: 30 0RF furosemide 20 mg tablet 20 mg PO DAILY Patient Comments: TAKE ONE TABLET BY MOUTH EVERY DAY Discharge Instructions Instructions: Fatigue (DC), Chest Pain (DC) Additional Instructions: Return to the ED for worsening pain and difficulty breathing. Despite negative workup at this time, you may still be at risk for a cardiac event and are strongly encouraged to follow up for further testing. Referrals: Irving Molina MD [Primary Care Provider] - Discharge Data Discharge Physician: Valarie Montague [facility] General Date/Time Provider Initiated Documentation: 01/22/25 19:08. HPI Narrative: 79-year-old female with history of thyroid disease, atrial fibrillation, hypertension, high cholesterol and fibromyalgia presents for evaluation of chest pain and fatigue. Patient states that she has felt very tired all day. She episodes of fatigue recently. This afternoon when sitting in her chair she developed some intense pain in the center of her chest. It only lasted for few minutes. It has not reoccurred. She denies any radiation of the pain. No fevers or chills. No cough or cold. No shortness of breath. She has had constipation over the last couple of weeks. Denies any history of diverticulitis or diverticulosis. She is on levothyroxine. She is unsure when her last TSH testing occurred. Denies any history of heart attack. She is on medication for high blood pressure, cholesterol, and blood thinners. She has a history of vascular disease. Denies any increased leg swelling. She does have some chronic lower extremity edema. Denies any difficulty with urination. Denies any history of smoking. No history of diabetes. She did tolerate normal p.o. today. Related Data Home Medications ?Medication ?Instructions ?Recorded ?Confirmed apixaban 5 mg tablet (Eliquis) 5 mg PO BID 02/02/23 01/22/25 levothyroxine 112 mcg capsule 112 mcg PO DAILY 02/02/23 01/22/25 lisinopril 20 mg tablet 20 mg PO DAILY 02/02/23 01/22/25 clopidogrel 75 mg tablet 75 mg PO DAILY 03/22/23 01/22/25 clopidogrel 75 mg tablet (Plavix) 75 mg PO DAILY #30 tabs 01/14/25 01/22/25 gabapentin 300 mg capsule 300 mg PO TID #90 caps 01/14/25 01/22/25 gabapentin 600 mg tablet 600 mg PO TID 01/14/25 01/22/25 metoprolol succinate 50 mg 150 mg (3 x 50 mg) PO DAILY #90 01/14/25 01/22/25 tablet,extended release 24 hr tabs pravastatin 40 mg tablet 40 mg PO DAILY #30 tabs 01/14/25 01/22/25 sertraline 50 mg tablet 50 mg PO DAILY 01/14/25 01/22/25 furosemide 20 mg tablet 20 mg PO DAILY 01/22/25 01/22/25 Previous Rx's ?Medication ?Instructions ?Recorded clopidogrel 75 mg tablet (Plavix) 75 mg PO DAILY #30 tabs 01/14/25 gabapentin 300 mg capsule 300 mg PO TID #90 caps 01/14/25 metoprolol succinate 50 mg 150 mg (3 x 50 mg) PO DAILY #90 01/14/25 tablet,extended release 24 hr tabs pravastatin 40 mg tablet 40 mg PO DAILY #30 tabs 01/14/25 Allergies Allergy/AdvReac Type Severity Reaction Status Date / Time No Known Allergies Allergy Verified 01/22/25 19:35 General Stated Complaint: Chest Pain SUSAN: 3 Review of Systems Narrative: Remainder of review of systems otherwise negative except for as noted in the HPI x 10. Exam Narrative Exam Narrative: General: non-toxic, no respiratory distress, comfortable HEENT: normocephalic, atraumatic, lids and lashes normal, PERRL, EOMI, anicteric sclera, no conjunctival injection, moist oral mucosa Card: regular rate and rhythm, S1S2, no murmurs, rubs, or gallops Lungs: good air entry, clear to auscultation bilaterally. no wheezes, rales, rhonchi, or retractions Abd: soft, non-tender, non-distended, normal bowel sounds, no rebound or guarding, no peritoneal signs Musculoskeletal: full range of motion of arms and legs, no tenderness to palpation. no clubbing, cyanosis, or edema Neurologic: GCS 15, speech normal, sensation intact, appropriate for age, strength normal Psych: alert and oriented Skin: no petechiae, no lesions, warm and dry Course Vital Signs Vital signs: Vital Signs Temperature 36.6 C 01/22/25 19:04 Pulse 68 01/22/25 19:04 Respiratory Rate 16 01/22/25 19:04 Blood Pressure 143/82 H 01/22/25 19:04 Pulse Oximetry 98 01/22/25 19:04 Temperature 36.6 C 01/22/25 19:04 Pulse 68 01/22/25 19:04 Respiratory Rate 18 01/22/25 19:23 Respiratory Effort Normal 01/22/25 19:23 Respiratory Depth Normal 01/22/25 19:23 Respiratory Pattern Normal 01/22/25 19:23 Blood Pressure 143/82 H 01/22/25 19:04 Pulse Oximetry 98 01/22/25 19:04 Pain Level 0 01/22/25 19:04 Lab/Test Results Lab/Test Results: Laboratory Tests Range/Units 01/22/25 19:19 WBC (4.4-10.8) 10^3/uL 6.39 RBC (3.93-5.22) 10^6/uL 4.56 Hgb (11.2-15.7) g/dL 12.8 Hct (36.0-46.0) % 39.9 MCV (80-95) fL 88 MCH (27.0-33.0) pg 28.1 MCHC (32.0-36.0) % 32.1 RDW (11.7-14.6) % 14.1 Plt Count (130-400) 10^3/uL 396 MPV (8.0-11.0) fL 9.2 Immature Gran % % 0.5 Neutrophils % % 58.9 Lymphocytes % % 31.1 Monocytes % % 6.4 Eosinophils % % 2.5 Basophils % % 0.6 Nucleated RBC % (0.0-0.3) % 0.0 Absolute Neutrophils (1.2-6.7) 10^3/uL 3.76 Absolute Lymphocytes (1.2-3.4) 10^3/uL 1.99 Absolute Monocytes (0.1-0.8) 10^3/uL 0.41 Absolute Eosinophils (0.0-0.7) 10^3/uL 0.16 Absolute Basophils (0.0-0.2) 10^3/uL 0.04 Medical Decision Making 79-year-old female with history of thyroid disease, atrial fibrillation, hypertension, high cholesterol and fibromyalgia presents for evaluation of chest pain and fatigue. EKG shows PVCs without any acute ischemic changes. Chest x-ray unremarkable. Laboratory studies including 2 troponins are normal. TSH is normal. BNP is not significantly elevated. On reassessment patient is feeling much improved and requesting discharge home. Unclear etiology of symptoms earlier today. Unlikely PE, aortic dissection, or cardiac cause of symptoms due to lack of risk factors, description of pain, unremarkable vital signs, and negative work-up. Will discharge home. Patient is to follow up with PMD. Return to the ED for worsening pain and difficulty breathing. Despite negative workup at this time, pt is counselled that they may still be at risk for a cardiac event and are strongly encouraged to follow up for further testing. Quality:SDOH Health Related Social Needs: No Data to Display PFSH All Active Problems (Updated 01/22/25 @ 21:05 by Valarie Montague MD) Fatigue (Acute) Chest pain (Acute) Bilateral sensorineural hearing loss (Acute) Medical History Back pain Gait abnormality Dizziness Balance problem Atrial fibrillation Stroke Paroxysmal atrial fibrillation Depression Fibromyalgia Hypothyroidism Hyperlipidemia Hypertension Irregular heartbeat Surgical History S/P lumbar discectomy Social History Smoking/Tobacco Use Status: Never Smoking risk assessment performed?: Yes Alcohol Intake: never Drug use: Never Household members: spouse Housing: house Number of Children: 6
[2025-01-22 19:48] LABS: ALT 13 U/L (14-59); AST 11 U/L (15-37); Albumin 3.5 g/dL (3.4-5.0); Alkaline Phosphatase 95 U/L (46-116); Anion Gap 8.2 mmol/L (3-11); BUN 20 mg/dL (7-18); Bilirubin, Total 0.2 mg/dL (0.2-1.0); CO2 30.8 mmol/L (21.0-32.0); CREATININE 1.5 mg/dL (0.55-1.02); Calcium 9.2 mg/dL (8.5-10.1); Chloride 99 mmol/L (98-107); Estimated GFR 35.01 (mL/min/1.73m2); Glucose 111 mg/dL (74-106); Lipase 54 U/L (<78); Potassium 3.6 mmol/L (3.5-5.1); Sodium 138 mmol/L (136-145); Total Protein 8.2 g/dL (6.4-8.2); Troponin I 4 ng/L (<or=51)
--- NOTE | 2025-01-22 19:53 | DI.RAD_ITS ---
Exam(s) XR PORTABLE CHEST AP EXAM: XR PORTABLE CHEST AP CLINICAL HISTORY: Chest pain TECHNIQUE: 2D digital imaging was performed. COMPARISON: CR,XR XR CHEST 2V PA LATERAL from 01/12/2025 FINDINGS: LUNGS: Clear. No pleural abnormality seen. HEART: Normal size. AORTA: Normal diameter. BONES: Unremarkable for age. Soft tissues: Unremarkable. IMPRESSION: No acute findings. DATA REPOSITORY: RADIATION DOSE DELIVERED:
[2025-01-22 20:12] LABS: COVID-19 PCR Negative (Negative); Influenza A PCR Negative (Negative); Influenza B PCR Negative (Negative); RSV PCR Negative (Negative)
[2025-01-22 20:13] LABS: Source Nasopharynx
--- NOTE | 2025-01-22 20:39 | DI.VRAD_ITS ---
PROCEDURE INFORMATION: Exam: XR Chest Exam date and time: 01/22/2025 7:53 PM Age: 79 years old Clinical indication: Other: Chest pain TECHNIQUE: Imaging protocol: Radiologic exam of the chest. Views: 1 view. COMPARISON: CR XR CHEST 2V PA LATERAL 01/12/2025 8:52 PM FINDINGS: Lungs: Unremarkable. No consolidation. Pleural spaces: Unremarkable. No pleural effusion. No pneumothorax. Heart/Mediastinum: Unremarkable. No cardiomegaly. Bones/joints: Moderate degenerative changes of the spine and shoulders. No acute fracture IMPRESSION: No acute disease Dictated and Authenticated by: Jose Davenport MD. Orderin Clari Sheppard MD
[2025-01-22 20:49] LABS: TSH (W/Ref FT4) 0.94 uIU/mL (0.36-3.74)
[2025-01-22 20:50] LABS: NT-proBNP 156 pg/mL (<300)
[2025-01-22 20:51] LABS: Troponin I 4 ng/L (<or=51)
== END 2025-01-22 21:17 | disposition home or self-care (01) ==
PROVIDERS: Emergency Provider Emergency Medicine Emergency Medical Services; PCP Family Medicine
DX: R07.9 Chest pain, unspecified (principal); I49.3 Ventricular premature depolarization; R53.83 Other fatigue; E78.5 Hyperlipidemia, unspecified; I10 Essential (primary) hypertension; E03.9 Hypothyroidism, unspecified; Z86.73 Personal history of transient ischemic attack (TIA), and cerebral infarction without residual deficits; Z79.02 Long term (current) use of antithrombotics/antiplatelets; Z79.01 Long term (current) use of anticoagulants
CPT/HCPCS: 80053; 83690; 87637; 93005; 99285; 71045; 83735; 83880; 84443; 84484; 85025; 93010; 99284

== ENCOUNTER 2025-07-28 03:24 | Emergency (ER) | payer MEDICARE, SELFPAY ==
[2025-07-28] VITALS (34 sets, daily range): BP systolic 121–178; BP diastolic 55–87; PULSE 53–67; RESP 0–23; TEMP 35.7; O2SAT 93–99
--- NOTE | 2025-07-28 03:15 | RT.EKG_ITS ---
APPROVED REPORT Exam: Resting ECG Reason for Exam: Chest pain Patient Location: E HR:59 bpm ECG Measurements Heart Rate 59 AXIS [place] 151 P 25 QRSd 93 QRS 45 QT 442 T 49 QTc 437 Conclusion Sinus bradycardia...rate< 60 Normal Walling/Interval No acute ST changes There are no significant changes compared to prior EKG performed on 01/22/2025 at 18:59.
--- NOTE | 2025-07-28 03:27 | W.ED.GENAD ---
Discharge Plan Disposition Patient Disposition: Home Condition: Good Discharge Details Clinical Impression: Chest pain Primary Care Provider: Irving Molina ED Provider: Toño Gibbons Home Meds and New Rx's Prescriptions: Continued metoprolol succinate 50 mg tablet extended release 24 hr 100 mg PO DAILY acetaminophen 650 mg tablet extended release 650 mg PO Q8H diclofenac sodium [Voltaren Arthritis Pain] 1 % gel 2 g topical QID Rx Instructions: apply to single elbow, wrist or hand; for hand includes palm/fingers/back of hand cholecalciferol (vitamin D3) 50 mcg (2,000 unit) capsule 50 mcg PO DAILY Eliquis 5 mg tablet 5 mg PO BID levothyroxine 112 mcg capsule 112 mcg PO DAILY lisinopril 20 mg tablet 10 mg PO DAILY gabapentin 600 mg tablet 600 mg PO TID Patient Comments: TAKE ONE TABLET BY MOUTH THREE TIMES A DAY sertraline 50 mg tablet 50 mg PO DAILY Patient Comments: TAKE ONE TABLET BY MOUTH EVERY DAY pravastatin 40 mg tablet 40 mg PO DAILY Qty: 30 0RF furosemide 20 mg tablet 20 mg PO DAILY Patient Comments: TAKE ONE TABLET BY MOUTH EVERY DAY Discharge Instructions Instructions: Chest Pain, Adult ED Additional Instructions: You were seen for episode of chest pain at home. Your exam, EKG, labs, imaging and previous stress testing are reassuring. We will plan discharge back home and have him follow-up with primary care. Continue current medications as before. Return for any for any new or worsening chest pain, neurologic change, fainting, shortness of breath, or other concerns. Stand Alone Forms: Portal Information Referrals: Irving Molina MD [Primary Care Provider, Medicine] [facility] General Mode of arrival: wheelchair. Date/Time Provider Initiated Documentation: 07/28/25 03:27. Limitations to Documentation: no limitations. Information obtained by: patient, family, RN notes reviewed and old records reviewed. HPI Narrative: Patient presents to ED from home after developing substernal chest pain that she cannot really describe earlier this morning. She states that she was already awake when she developed chest pain. She reports that she has not had this before. She was fine when she went to bed. Pain resolved at home. She reports no radiation of the pain. She did not feel short of breath. She denies nausea or diaphoresis. She is not having pain here but states that she just does not feel right. She cannot accurately describe what she is feeling. However, she denies having any type of pain or discomfort, shortness of breath, dizziness or lightheadedness, nausea here in ED. Related Data Home Medications ?Medication ?Instructions ?Recorded ?Confirmed apixaban 5 mg tablet (Eliquis) 5 mg PO BID 02/02/23 07/28/25 levothyroxine 112 mcg capsule 112 mcg PO DAILY 02/02/23 07/28/25 gabapentin 600 mg tablet 600 mg PO TID 01/14/25 07/28/25 pravastatin 40 mg tablet 40 mg PO DAILY #30 tabs 01/14/25 07/28/25 sertraline 50 mg tablet 50 mg PO DAILY 01/14/25 07/28/25 furosemide 20 mg tablet 20 mg PO DAILY 01/22/25 07/28/25 acetaminophen 650 mg 650 mg PO Q8H 07/08/25 07/28/25 tablet,extended release cholecalciferol (vitamin D3) 50 50 mcg PO DAILY 07/08/25 07/28/25 mcg (2,000 unit) capsule diclofenac sodium 1 % topical gel 2 g topical QID 07/08/25 07/28/25 (Voltaren Arthritis Pain) lisinopril 20 mg tablet 10 mg PO DAILY 07/08/25 07/28/25 metoprolol succinate 50 mg 100 mg PO DAILY 07/08/25 07/28/25 tablet,extended release 24 hr Previous Rx's ?Medication ?Instructions ?Recorded pravastatin 40 mg tablet 40 mg PO DAILY #30 tabs 01/14/25 Allergies Allergy/AdvReac Type Severity Reaction Status Date / Time No Known Allergies Allergy Verified 07/28/25 03:39 General SUSAN: 3 Exam Narrative Exam Narrative: Const: WDWN elderly female in NAD. VS per triage. HEENT: NC/AT. Normal facial exam. Neck: Supple. Trachea midline. Lungs: Normal respiratory effort. Lungs are clear. Cor: RRR without murmur. Good radial pulses. GI: Soft/ND/NT. Neuro: A+O x 3. Normal speech, mentation, gait. Cranial nerves II - XII grossly intact. No gross motor or sensory deficit. Ext: No C/C/E. Medical Decision Making Patient presenting from home after developing substernal chest pain this morning. Cannot describe the pain. Did not have radiation of pain. Did not seem to have any associated symptoms. Did not have pain on the way to the hospital nor does she have pain here. Repeats that she just does not feel right but cannot describe how she feels. She had an admission in January of this year due to chest and back pain. A MIBI study performed then is documented as normal. Abdominal exam is benign. There is no right upper quadrant tenderness. Lungs are clear. Pulses are strong throughout. EKG obtained on arrival is sinus bradycardia at [address] changes and no significant change compared to January. She is on anticoagulant for her history of A-fib. Will give chewable aspirin pending workup. She is pain-free so does not require nitro or morphine. Laboratory studies including D-dimer and serial troponin will be obtained. Chest imaging will be based upon D-dimer result. 04:20 - Patient's initial labs are reassuring. CBC is normal. Troponin is less than 3. Electrolytes and liver function normal. Lipase normal. Kidney function with creatinine 1.56 similar to discharge creatinine in the. D-dimer greater than at thousand despite anticoagulation will obtain CTA chest. Will plan on 1 and 3-hour troponins. 06:40 - Patient's second troponin remains less than 3. She has had no recurrent pain. Given normal stress MIBI in January and 2 troponins less than 3 and unchanged EKG this does not appear to be cardiac in nature. Will not need to repeat 3-hour troponin. On further questioning patient reports that the total duration of the pain was probably 5 minutes. She states she was more scared and panicky than anything else because she never had that feeling before. CTA of the chest discussed with radiologist. There is no pulmonary embolus. There is no consolidation. Some subtle ground glass opacities and mosaic attenuation. She is noted to have a T12 burst fracture. We were eventually able to send MRI images from this spring for review. In comparison this is old and stable. Patient is not having back pain. Therefore, given reassuring chest pain workup, recent MIBI which was normal, short duration of chest pain with no recurrence here will plan discharge home to follow-up with primary care. Potentially this may have been related to reflux and esophageal spasm. Return precautions discussed and given. Medical Records Medical records reviewed: Yes I reviewed the patient's medical records. Medical records narrative: admission and MIBI study from January Lab Data Lab results reviewed: Yes I reviewed the patient's lab results. Lab results narrative: see MDM ECG Data Attestation: I personally reviewed and interpreted this ECG (s) as follows: Prior ECG tracings: available for review Interpretation: see MDM/EKG [facility] All Active Problems (Updated 07/28/25 @ 06:46 by Toño Gibbons MD) Chest pain (Acute) Bilateral sensorineural hearing loss (Acute) Medical History Acute pain of right knee Acute low back pain Acute depression Functional neurological symptom disorder with mixed symptoms Left wrist pain Left ankle pain Vertebral artery insufficiency Sweating abnormality Edema Insomnia Muscle pain Bruising Bilateral leg pain Bilateral arm pain Acquired trigger finger Basilar artery syndrome Carpal tunnel syndrome CMC arthritis Chronic pain of both shoulders Chronic kidney disease (CKD), stage 3 Gait instability Vitamin D toxicity Burst fracture of T12 vertebra Back pain Gait abnormality Dizziness Balance problem Atrial fibrillation Stroke Paroxysmal atrial fibrillation Depression Fibromyalgia Hypothyroidism Hyperlipidemia Hypertension Irregular heartbeat Surgical History History of back surgery 09/04/1974 History of thyroidectomy History of carpal tunnel release 08/13/2024 S/P lumbar discectomy Social History Smoking/Tobacco Use Status: Never Smoking risk assessment performed?: Yes Alcohol Intake: never Drug use: Never Household members: spouse Housing: house Number of Children: 6
[2025-07-28] MEDS: Aspirin 81 MG CHEW 324 MG CH (03:43)
[2025-07-28 03:46] LABS: Abs Immature Grans 0.02 10^3/uL (0.0-0.06); HCT 39.4 % (36.0-46.0); HGB 12.6 g/dL (11.2-15.7); Immature Grans % 0.3 %; MCH 28.3 pg (27.0-33.0); MCHC 32.0 % (32.0-36.0); MCV 88 fL (80-95); MPV 9.4 fL (8.0-11.0); Platelet Count 270 10^3/uL (130-400); RBC 4.46 10^6/uL (3.93-5.22); RDW 13.9 % (11.7-14.6); RDW-SD 45.2 fL; WBC 7.25 10^3/uL (4.4-10.8)
[2025-07-28 04:03] LABS: Lipase 42 U/L (<53)
[2025-07-28 04:04] LABS: Magnesium 1.8 mg/dL (1.6-2.6)
[2025-07-28 04:05] LABS: ALT 10 U/L (10-49); AST 15 U/L (<34); Albumin 4.3 g/dL (3.4-5.0); Alkaline Phosphatase 77 U/L (46-116); Anion Gap 9.3 mmol/L (3-11); BUN 26 mg/dL (9-23); Bilirubin, Total 0.40 mg/dL (0.2-1.2); CO2 29.7 mmol/L (20.0-31.0); Calcium 8.5 mg/dL (8.3-10.6); Chloride 101 mmol/L (98-107); Glucose 109 mg/dL (74-106); Potassium 3.7 mmol/L (3.5-5.1); Sodium 140 mmol/L (136-145); Total Protein 7.1 g/dL (5.7-8.2); Troponin I < 3 ng/L (<35)
[2025-07-28 04:10] LABS: D-Dimer 1063 ng/mlFEU (<500)
--- NOTE | 2025-07-28 04:15 | DI.CT_ITS ---
Exam(s) CT CHEST PE CTA EXAM: CT CHEST PE CTA CLINICAL HISTORY: CP, elevated d-dimer. TECHNIQUE: Imaging Protocol: Axial CT angiography was performed with multi- slice acquisition and multi-planar and/or 3D reconstructions. Lung Computer Aided Detection (CAD) was utilized. CONTRAST MATERIAL: Intravenous: Omnipaque 350 contrast volume:70 mL COMPARISON: CR,XR XR CHEST 2V PA LATERAL from 01/12/2025 CR,XR XR PORTABLE CHEST AP from 01/22/2025 FINDINGS: There is poor inspiration. Tracheobronchial tree: Patent where visualized. No bronchiectasis. Pulmonary parenchyma: No consolidation or dominant measurable mass. No architectural distortion. Pulmonary Arteries: No evidence of filling defect to suggest pulmonary emboli. Mediastinum and Graciela: No dominant adenopathy or fluid collection. The esophagus is unremarkable. There is a small hiatal hernia. Pleura: No effusion or pneumothorax. Heart: The heart is not dilated. Mild coronary artery calcification is present. No pericardial effusion. Aorta: Thoracic aorta non-dilated. Atherosclerotic calcification is present. Upper abdomen: There is diverticulosis of the colon. Soft tissues: Unremarkable. Bones: There is an old T12 compression deformity. IMPRESSION: 1. There is no evidence of a pulmonary embolism or thoracic aortic aneurysm. 2. There is poor inspiration with areas of atelectasis in the lungs. 3. Stable T12 compression fracture deformity. 4. The preliminary [facility] report was reviewed. RADIATION DOSE DELIVERED: 110.15mGy.cm Total DLP DATA REPOSITORY: All CT scans at this facility are submitted to the National Radiology Data Registry (NRDR) Dose Index Registry (DIR) with the [employer] ([employer]). RADIATION OPTIMIZATION: All CT scans at this facility use at least one of these dose optimization techniques: automated exposure control; mA and/or kV adjustment per patient size (includes targeted exams where dose is matched to clinical indication); or iterative reconstruction.
[2025-07-28] MEDS: Normal Saline 1,000 ML 1000 ML IV (04:23)
[2025-07-28] MEDS: Omnipaque 350 MG/ML 100 ML BTL IJ (04:33)
[2025-07-28] MEDS: Normal Saline Flush 10 ML SYR IVP (04:34)
[2025-07-28] MEDS: Normal Saline - Diluent 50 ML VIAL IJ (04:34)
[2025-07-28 05:07] LABS: Troponin I < 3 ng/L (<35)
--- NOTE | 2025-07-28 06:01 | DI.VRAD_ITS ---
PROCEDURE INFORMATION: Exam: CTA Chest With Contrast Exam date and time: 07/28/2025 4:29 AM Age: 80 years old Clinical indication: Pain and abnormal findings; Abnormal diagnostic tests; Elevated d-dimer; Other: Chest pain TECHNIQUE: Imaging protocol: Computed tomographic angiography of the chest with contrast. Exam focused on the arteries. 3D rendering (Not supervised by radiologist): MIP and/or 3D reconstructed images were created by the technologist. Radiation optimization: All CT scans at this facility use at least one of these dose optimization techniques: automated exposure control; mA and/or kV adjustment per patient size (includes targeted exams where dose is matched to clinical indication); or iterative reconstruction. Contrast material: OMNIPAQUE 350; Contrast volume: 70 ml; Contrast route: INTRAVENOUS (IV); COMPARISON: CR XR PORTABLE CHEST AP 01/22/2025 7:53 PM FINDINGS: Pulmonary arteries: No filling defects in the pulmonary arteries to suggest pulmonary emboli. Aorta: There is no thoracic aortic aneurysm. Lungs: No consolidation. Subtle ground-glass opacities and mosaic attenuation. Pleural spaces: Unremarkable. No pneumothorax. No pleural effusion. Heart: The heart is normal in size. There are no pericardial fluid collections. Lymph nodes: No enlarged mediastinal or hilar lymph nodes are seen. Bones/joints: Moderate burst fracture of T12 with retropulsion and mild narrowing of the central spinal canal, of unknown acuity. There is minimal retrolisthesis of T12 on L1. 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 MRI may be helpful for further characterization, clinically indicated. Soft tissues: Unremarkable. Other findings: No acute findings in the included upper abdomen. IMPRESSION: 1. No evidence of pulmonary embolus. 2. Subtle ground-glass opacities and mosaic attenuation. This may be seen in a small airways disease, viral pneumonitis, hypersensitivity pneumonitis, atypical pneumonia. 3. Moderate burst fracture of T12 with retropulsion and mild narrowing of the central spinal canal, of unknown acuity. There is minimal retrolisthesis of T12 on L1. MRI may be helpful for further characterization, clinically indicated. Findings were discussed with JAZZMINE DURAN at 07/28/2025 5:59 AM EST. An MRI of the thoracic spine of 11/21/2024 was done and has been requested. An addendum will be dictated once the images arrive. Dictated and Authenticated by: Torito Grace MD. Orderin Shai Lundberg MD
--- NOTE | 2025-07-28 06:24 | DI.VRAD_ITS ---
Addendum created by Torito Grace MD on 07/28/2025 6:23:16 AM EST: ADDENDUM: Burst fracture of T12 is present on the comparison MRI of 11/21/2024 and shows no significant interval change. Initial report created on 07/28/2025 6:00:54 AM EST: PROCEDURE INFORMATION: Exam: CTA Chest With Contrast Exam date and time: 07/28/2025 4:29 AM Age: 80 years old Clinical indication: Pain and abnormal findings; Abnormal diagnostic tests; Elevated d-dimer; Other: Chest pain TECHNIQUE: Imaging protocol: Computed tomographic angiography of the chest with contrast. Exam focused on the arteries. 3D rendering (Not supervised by radiologist): MIP and/or 3D reconstructed images were created by the technologist. Radiation optimization: All CT scans at this facility use at least one of these dose optimization techniques: automated exposure control; mA and/or kV adjustment per patient size (includes targeted exams where dose is matched to clinical indication); or iterative reconstruction. Contrast material: OMNIPAQUE 350; Contrast volume: 70 ml; Contrast route: INTRAVENOUS (IV); COMPARISON: CR XR PORTABLE CHEST AP 01/22/2025 7:53 PM FINDINGS: Pulmonary arteries: No filling defects in the pulmonary arteries to suggest pulmonary emboli. Aorta: There is no thoracic aortic aneurysm. Lungs: No consolidation. Subtle ground-glass opacities and mosaic attenuation. Pleural spaces: Unremarkable. No pneumothorax. No pleural effusion. Heart: The heart is normal in size. There are no pericardial fluid collections. Lymph nodes: No enlarged mediastinal or hilar lymph nodes are seen. Bones/joints: Moderate burst fracture of T12 with retropulsion and mild narrowing of the central spinal canal, of unknown acuity. There is minimal retrolisthesis of T12 on L1. 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 MRI may be helpful for further characterization, clinically indicated. Soft tissues: Unremarkable. Other findings: No acute findings in the included upper abdomen. IMPRESSION: 1. No evidence of pulmonary embolus. 2. Subtle ground-glass opacities and mosaic attenuation. This may be seen in a small airways disease, viral pneumonitis, hypersensitivity pneumonitis, atypical pneumonia. 3. Moderate burst fracture of T12 with retropulsion and mild narrowing of the central spinal canal, of unknown acuity. There is minimal retrolisthesis of T12 on L1. MRI may be helpful for further characterization, clinically indicated. Findings were discussed with JAZZMINE DURAN at 07/28/2025 5:59 AM EST. An MRI of the thoracic spine of 11/21/2024 was done and has been requested. An addendum will be dictated once the images arrive. Dictated and Authenticated by: Torito Grace MD. Orderin Shai Lundberg MD
== END 2025-07-28 06:58 | disposition home or self-care (01) ==
PROVIDERS: Emergency Provider Emergency Medicine; PCP Family Medicine
DX: R07.9 Chest pain, unspecified (principal)
CPT/HCPCS: 99284; 99285; 36415; 71275; 80053; 83690; 93005; 96360; 96361; 83735; 84484; 85025; 85379; 93010; J3490